=== PATIENT | male | born 1970 | race African-American/Black ===

== ENCOUNTER 2025-01-11 23:15 | Emergency (ER) | payer MEDICAID ==
[~2025-01-11] VITALS: Ht 172.7 cm; Wt 105.4 kg
[2025-01-11 23:30] VITALS: O2SAT 99
[2025-01-12] MEDS: KETOROLAC 15MG/ML VIAL IM ONE (01:09)
[2025-01-12] MEDS: LIDOCAINE 5% PATCH TOP SCH (01:48)
[2025-01-12] MEDS ORDERED: NAPR-1176 MT (02:05)
[2025-01-12] MEDS ORDERED: LIDO-53 TP (02:05)
[2025-01-12 02:29] VITALS: BP 150/89; PULSE 70; RESP 19; TEMP 36.5; O2SAT 99
== END 2025-01-12 02:00 | disposition home or self-care (01) ==
LOC: ER 23:15
DX: M54.31 Sciatica, right side (principal); I10 Essential (primary) hypertension; Z98.890 Other specified postprocedural states
CPT/HCPCS: 99283; 73502; 96372; J1885; Z7610